=== PATIENT | male | born 1945 | race Caucasian/White ===

== ENCOUNTER 2018-07-12 07:58 | Outpatient (CLI) | payer BC ==
--- NOTE | 2018-07-12 09:33 | MRI ---
MRI THORACIC SPINE WITHOUT CONTRAST: History: Upper back pain between shoulders for weeks. Radiculopathy. Technique: Multiplanar, multisequence MRI images were obtained of the thoracic spine without contrast . FINDINGS: Generalized disc desiccation is seen. The vertebral bodies and intervertebral discs demonstrate akua l height and alignment without fracture or subluxation. No significant disc bulges or protrusions are seen throughout the thoracic spine. The visualized cord demonstrates normal signal throughout. The neural foraminal are widely patent thr oughout the thoracic spine. No central canal stenosis is seen. No posterior facet arthrosis. The prevertebral and paraspinal soft tissues are unremarkable. IMPRESSION: Mild disc desiccation of the thoracic spine without neural foraminal or central canal stenosis. POS: [facility]
== END 2018-07-12 07:59 | disposition home or self-care (01) ==
LOC: SCSMRI 07:58
PROVIDERS: ATTEND Anesthesiology Pain Medicine
DX: M54.14 Radiculopathy, thoracic region (principal); S23.101A Dislocation of unspecified thoracic vertebra, initial encounter
CPT/HCPCS: 72146